=== PATIENT | female | born 1965 | race Caucasian/White ===

== ENCOUNTER → 2016-12-24 | Outpatient (CLI) | payer OTHER | END | disposition home or self-care (01) | LOC: KCIC MAMMO 11:16 | PROVIDERS: ATTEND Nurse Practitioner Family | DX: Z12.31 Encounter for screening mammogram for malignant neoplasm of breast (principal) | CPT/HCPCS: G0202; 77067 ==

== ENCOUNTER → 2017-05-20 | Outpatient (CLI) | payer OTHER ==
--- NOTE | 2017-05-20 16:15 | KCIC ---
EXAM: Chest, 2 views. HISTORY: Wheezing. COMPARISON: None. FINDINGS: Frontal and lateral views of the chest are obtained. There is right infrahilar atelectasis, scarring or interstitial infiltrate. There is no consolidation, effusion or pneumothorax. The heart is normal in size. IMPRESSION: Right infrahilar atelectasis, scarring or interstitial infiltrate. Electronically signed by: Ольга Palma MD (05/20/2017 4:12 PM) [id number]
== END | disposition home or self-care (01) ==
LOC: KCIC 15:33
PROVIDERS: ATTEND Nurse Practitioner Family
DX: J40 Bronchitis, not specified as acute or chronic (principal); R06.2 Wheezing
CPT/HCPCS: 71020

== ENCOUNTER → 2017-05-24 | Outpatient (CLI) | payer OTHER ==
--- NOTE | 2017-05-24 13:02 | KCIC ---
Indication: Walking pneumonia. Time of exam 12:32 PM Comparison is made with prior chest from 05/20/2017. FINDINGS: The heart size is normal. The lungs are clear. No pleural effusion or pneumothorax is identified. The pulmonary vascularity is normal. IMPRESSION: No acute abnormality detected. Electronically signed by: Rick Barrera MD (05/24/2017 12:59 PM) [id number]
== END | disposition home or self-care (01) ==
LOC: KCIC 12:26
PROVIDERS: ATTEND Nurse Practitioner Family
DX: J18.9 Pneumonia, unspecified organism (principal); R93.8 Abnormal findings on diagnostic imaging of other specified body structures
CPT/HCPCS: 71020

== ENCOUNTER → 2018-01-07 | Outpatient (CLI) | payer OTHER | END | disposition home or self-care (01) | LOC: KCIC MAMMO 13:14 | DX: Z12.31 Encounter for screening mammogram for malignant neoplasm of breast (principal) | CPT/HCPCS: 77067 ==

== ENCOUNTER → 2018-08-05 | Outpatient (CLI) | payer SELFPAY ==
--- NOTE | 2018-08-05 13:09 | KCIC ---
EXAM: CT calcium scoring. HISTORY: Family history of heart disease. Dyspnea on exertion. TECHNIQUE: Computed tomographic images of the chest were obtained without intravenous contrast according to a CT calcium scoring protocol. *One or more of the following individualized dose reduction techniques were utilized for this examination: 1. Automated exposure control. 2. Adjustment of the mA and/or kV according to patient size. 3. Use of iterative reconstruction technique. COMPARISON: None. FINDINGS: The heart is normal in size. The aorta is normal in caliber. No pathologically enlarged mediastinal or hilar lymph node is seen. There is minimal posterior dependent groundglass opacity within the superior segment of the left lower lobe, likely due to atelectasis. There is suspected linear atelectasis within the lingula. No suspicious pulmonary nodule is seen within the [id number]. There is no infiltrate, pleural effusion or pneumothorax. There is a 1.4 cm hypodense lesion within the posterior right hepatic lobe on the inferior most image, partially excluded from the [id number]. No suspicious osseous lesion is seen. CT calcium scoring report: LM: 0 LAD: 31.4 CX: 0 RCA: 0 Total: 31.4 IMPRESSION: 1. No acute thoracic finding. 2. CT calcium score of 31.4. 3. 1.4 cm indeterminant hypodense lesion within the posterior right hepatic lobe, partially excluded from the [id number]. In the absence of prior studies to assess for interval change, sonographic imaging may be able to characterize this lesion. If this lesion is not seen sonographically, CT or MRI can be performed for characterization. Electronically signed by: Ольга Palma MD (08/05/2018 1:06 PM) [facility]
== END | disposition home or self-care (01) ==
LOC: KCIC CT 11:08
PROVIDERS: ATTEND Nurse Practitioner Family
DX: R06.09 Other forms of dyspnea (principal); K76.9 Liver disease, unspecified; Z82.49 Family history of ischemic heart disease and other diseases of the circulatory system
CPT/HCPCS: 75571